=== PATIENT | female | born 1980 | race Caucasian/White ===

== ENCOUNTER 2018-04-25 10:37 | Emergency (ER) | payer OTHER ==
--- NOTE | 2018-04-25 11:26 | UC ---
Lower Extremity/Ankle HPI - HPI Summary HPI Summary: Right foot discomfort, this morning. Worse with ambulation. Over mid foot, dorsum. MD: GI; 177/128; "worse with pain" according to patient. Nurse: woke this morning with right foot pain above outer ankle . no known injury. c/o swelling tingling - History of Current Complaint Chief Complaint: UCLowerExtremity Stated Complaint: FOOT INJURY Time Seen by Provider: 04/25/18 11:20 Hx Obtained From: Patient Hx Last Menstrual Period: unknown Pain Intensity: 8 - Allergies/Home Medications Allergies/Adverse Reactions: Allergies Allergy/AdvReac Type Severity Reaction Status Date / Time No Known Allergies Allergy Verified 04/25/18 10:54 Home Medications: Home Medications NK [No Home Medications Reported] 04/25/18 [History Confirmed 04/25/18] PMH/Surg Hx/FS Hx/Imm Hx - Additional Past Medical History Additional PMH: Right knee surgery x 2. Hypertension. Elevated with pain. Heavy smoker. Rare alcohol. Depression; anxiety. Social hx: works in office. lives at home with family. Family hx: HTN; DM. Previously Healthy: Yes Cardiovascular History: Hypertension - Surgical History Surgical History: Yes Surgery Procedure, Year, and Place: 2000 TONSILLECTOMY [place]. 2009 [place]. 2010 RIGHT KNEE ARTHROSCOPY [facility] [place] - Social History Alcohol Use: Rare Substance Use Type: None Smoking Status (MU): Heavy Every Day Tobacco Smoker Review of Systems All Other Systems Reviewed And Are Negative: Yes Constitutional: Positive: Negative Skin: Positive: Negative Eyes: Positive: Negative ENT: Positive: Negative Respiratory: Positive: Negative Cardiovascular: Positive: Negative Gastrointestinal: Positive: Negative Genitourinary: Positive: Negative Motor: Positive: Negative Neurovascular: Positive: Negative Musculoskeletal: Positive: Arthralgia - right foot, Myalgia. Negative: Calf Tenderness Neurological: Positive: Negative Psychological: Positive: Negative Physical Exam - Summary Physical Exam Summary: Appearance: The patient is well-appearing, is mild distress from pain in right foot, and is well-nourished. Eyes: Conjunctiva are clear. Pupils are equal and reactive to light and accommodation. Extraocular muscle movement is intact. ENT: The hearing is grossly normal, the pharynx is normal, and the TMs are normal. There is no muffled or hoarse voice. No stridor. Neck: The neck is supple and there is no lymphadenopathy. Respiratory: The chest is non-tender to palpation and without crepitus. The lungs are clear, there are normal breath sounds, and there is no respiratory distress. No wheezes, rales or rhonchi. Cardiovascular: Heart sounds reveal a regular rate and rhythm. There are no clicks, rubs or murmurs. There are no carotid bruits or thrills. Circulation is grossly intact. Abdomen: The abdomen is soft and non-tender. There is no organomegaly. Bowel sounds are present and within normal limits. No point tenderness at McBurneys point. Musculoskeletal: Strength is within normal limits for age. The patient moves all extremities spontaneously. Mild right foot pain at rest; worse with ambulation. Area focused on mid-foot, dorsum. No 5th metatarsal tenderness. Achilles intact. Negative anterior drawer. No bony point tenderness over the ankle or calf pain. Neurological: The patient is alert. Motor and sensory examination grossly intact. Speech is normal. Psychological: The patient displays age appropriate behavior. Oriented to person , place and time. Skin: Negative for rashes. Triage Information Reviewed: Yes Vital Signs: Initial Vital Signs Temp 96.3 F 04/25/18 10:49 Pulse 110 04/25/18 10:49 Resp 18 04/25/18 10:49 BP 177/128 04/25/18 10:49 Pulse Ox 99 04/25/18 10:49 Eye Exam: Normal ENT Exam: Normal Dental Exam: Normal Neck exam: Normal Neck: Positive: 1 Respiratory Exam: Normal Cardiovascular Exam: Normal Abdominal Exam: Normal Musculoskeletal Exam: Normal Neurological Exam: Normal Psychological Exam: Normal Skin Exam: Normal Lower Extremity Course/Dx - Course Course Of Treatment: Right foot discomfort, this morning. Worse with ambulation. Over mid foot, dorsum. No fracture by x ray. Dx: tendonitis. Given cam boot, ginna; patient will use crutches. BP: 177/128. MEDICATIONS REVIEWED: Medications have been included in the original chart and reviewed. HYPERTENSION STATUS/MEDICATIONS REVIEWED and DISCUSSED WITH PATIENT. - Differential Dx/Diagnosis Differential Diagnosis/HQI/PQRI: Gout, Osteomyelitis, Sprain, Strain, Tendonitis Provider Diagnosis: Tendonitis Discharge - Sign-Out/Discharge Documenting (check all that apply): Patient Departure All imaging exams completed and their final reports reviewed: Yes - Discharge Plan Condition: Stable Disposition: HOME Patient Education Materials: Tendinitis (ED), Hypertension (ED) Referrals: No Primary Care Phys,NOPCP [Primary Care Provider] - Additional Instructions: WE DISCUSSED: PLEASE SEEK CARE AT THE EMERGENCY DEPARTMENT IF SYMPTOMS WORSEN OR IF NEW SYMPTOMS DEVELOP. FOLLOW UP WITH YOUR PRIMARY CARE PHYSICIAN IF CONDITION CONTINUES BEYOND 3 DAYS WITHOUT IMPROVEMENT. YOUR DIAGNOSIS IS: TENDONITIS ON THE TOP OF YOUR RIGHT FOOT Your blood pressure today was 177/128, very high. Recheck your blood pressure 3 times over the next month when you are no longer in pain. If it's above 120/80, follow up with your doctor. YOUR PRESCRIPTION RECOMMENDATION IS: IBUPROFEN AND ACETAMINOPHEN 400-600MG OF IBUPROFEN WITH 500-1000 MG OF ACETAMINOPHEN up to 3 times a day for 3 days. OTHER INSTRUCTIONS: warm moist heat in the morning; ice to area for pain during the day. Use crutches, ginna, boot and gradually put weight on foot. Recheck if continued or increasing discomfort or disability in 2 weeks. You could have a hidden fracture. - Billing Disposition and Condition Condition: STABLE Disposition: Home
[2018-04-25] MEDS ORDERED: Ibuprofen TAB* 600 MG PO ONE (11:43)
[2018-04-25 12:30] VITALS: BP 138/80
== END 2018-04-25 12:30 | disposition home or self-care (01) ==
LOC: UCEAST 10:37
DX: M77.51 Other enthesopathy of right foot and ankle (principal); F17.200 Nicotine dependence, unspecified, uncomplicated
CPT/HCPCS: 99213; A9270-GY; G0463